=== PATIENT | female | born 2000 | race African-American/Black ===

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

== ENCOUNTER 2019-01-04 15:19 | Emergency (ER) | payer OTHER ==
[2019-01-04 16:43] LABS: ABS Lymphocytes 1.8 10^3/ul (1.0-4.8); ABS Monocytes 0.6 10^3/ul (0-0.8); ABS Neutrophils 3.3 10^3/ul (1.5-7.7); Eosinophil % 0.9 %; Hematocrit 36 % (35-47); Hemoglobin 12.2 g/dL (12.0-16.0); Lymphocyte % 31.7 %; Mean Corpuscular HGB Conc 34 g/dL (31-36); Mean Corpuscular Hemoglobin 26 pg (27-31); Mean Corpuscular Volume 78 fL (80-97); Mean Platelet Volume 8.4 fL (7.4-10.4); Nucleated Red Blood Cells % 0.1; Platelet Count 289 10^3/uL (150-450); Red Blood Count 4.67 10^6 /uL (3.70-4.87); Red Cell Distribution Width 14 % (10-15); White Blood Count 5.8 10^3/uL (3.5-10.8)
[2019-01-04 16:59] LABS: ALT 37 U/L (7-52); AST 53 U/L (13-39); Albumin/Globulin Ratio 1.2 (1-3); Alkaline Phosphatase 57 U/L (34-104); Anion Gap 5 mmol/L (2-11); BUN/Creatinine Ratio 19.5 (8-20); Blood Urea Nitrogen 15 mg/dL (6-24); C Reactive Protein 18.16 mg/L (<8.01); CO2 Carbon Dioxide 26 mmol/L (22-32); Calcium 9.2 mg/dL (8.6-10.3); Chloride 106 mmol/L (101-111); EGFR African American 116.8 (>60); EGFR Non-African American 96.6 (>60); Globulin 3.4 g/dL (2-4); Glucose 85 mg/dL (70-100); Potassium 4.2 mmol/L (3.5-5.0); Sodium 137 mmol/L (135-145); Total Protein 7.4 g/dL (6.4-8.9)
[2019-01-04 17:00] LABS: HCG Pregnancy < 0.60 mIU/mL
--- NOTE | 2019-01-04 17:19 | ED ---
Lower Extremity - HPI Summary HPI Summary: 18 year old female reports to the ED with complaints of swelling in her lower left leg that started several days ago. She describes the pain as a soreness that is worse in the morning and better in the afternoon. The pain is a 4/10 in severity. Patient denies fever, chills, cough, shortness of breath, and recent traveling. She occasionally drinks alcohol and does not do recreational drugs. She is on control. - History of Current Complaint Chief Complaint: EDExtremityLower Stated Complaint: LEFT LOWER EXTREMITY Time Seen by Provider: 01/04/19 16:00 Hx Obtained From: Patient Hx Last Menstrual Period: 12/17/17 Onset of Pain: Days Onset/Duration: Days Severity Initially: Moderate Severity Currently: Moderate Pain Intensity: 4 Pain Scale Used: 0-10 Numeric Timing: Intermittent - worse in the morning, better in the afternoon, Lasting Hours Location: Is Discrete @ - Lower LLE. Associated Signs And Symptoms: Positive: Swelling. Negative: Fever, Other - chills, shortness of breath, cough Able to Bear Weight: Yes - Allergies/Home Medications Allergies/Adverse Reactions: Allergies Allergy/AdvReac Type Severity Reaction Status Date / Time clindamycin Allergy Hives Verified 01/04/19 15:30 Home Medications: Home Medications NK [No Home Medications Reported] 01/04/19 [History Confirmed 01/04/19] PMH/Surg Hx/FS Hx/Imm Hx Cardiovascular History: Denies: Hx Deep Vein Thrombosis - Immunization History Immunizations Up to Date: Yes Infectious Disease History: No Infectious Disease History: Denies: Traveled Outside the [place] in Last 30 Days - Family History Known Family History: Positive: Diabetes - Social History Alcohol Use: Weekly Substance Use Type: Reports: None Smoking Status (MU): Never Smoked Tobacco Review of Systems Negative: Fever, Chills Negative: Shortness Of Breath, Cough Positive: Edema All Other Systems Reviewed And Are Negative: Yes Physical Exam - Summary Physical Exam Summary: VITAL SIGNS: Reviewed. GENERAL: Patient is a well-developed and nourished female who is lying comfortable in the stretcher. Patient is not in any acute respiratory distress. HEAD AND FACE: No signs of trauma. No ecchymosis, hematomas or skull depressions. No sinus tenderness. EYES: PERRLA, EOMI x 2, No injected conjunctiva, no nystagmus. EARS: Hearing grossly intact. Ear canals and tympanic membranes are within normal limits. MOUTH: Oropharynx within normal limits. NECK: Supple, trachea is midline, no adenopathy, no JVD, no carotid bruit, no c- spine tenderness, neck with full ROM. CHEST: Symmetric, no tenderness at palpation. LUNGS: Clear to auscultation bilaterally. No wheezing or crackles. CVS: Regular rate and rhythm, S1 and S2 present, no murmurs or gallops appreciated. ABDOMEN: Soft, non-tender. No signs of distention. No rebound, no guarding, and no masses palpated. Bowel sounds are normal. EXTREMITIES: FROM in all major joints, no cyanosis or clubbing. +2 edema in LLE. NEURO: Alert and oriented x 3. No acute neurological deficits. Speech is normal and follows commands. SKIN: Dry and warm. Triage Information Reviewed: Yes Vital Signs On Initial Exam: Initial Vitals Temp Pulse Resp BP Pulse Ox 98.4 F 76 16 140/71 99 01/04/19 15:28 01/04/19 15:28 01/04/19 15:28 01/04/19 15:28 01/04/19 15:28 Vital Signs Reviewed: Yes Procedures - Sedation Patient Received Moderate/Deep Sedation with Procedure: No Diagnostics - Vital Signs Vital Signs Temp Pulse Resp BP Pulse Ox 01/04/19 15:28 98.4 F 76 16 140/71 99 - Laboratory Lab Results: Lab Results 01/04/19 01/04/19 Range/Units 16:24 16:24 WBC 5.8 (3.5-10.8) 10^3/uL RBC 4.67 (3.70-4.87) 10^6 /uL Hgb 12.2 (12.0-16.0) g/dL Hct 36 (35-47) % MCV 78 L (80-97) fL MCH 26 L (27-31) pg MCHC 34 (31-36) g/dL RDW 14 (10-15) % Plt Count 289 (150-450) 10^3/uL MPV 8.4 (7.4-10.4) fL Neut % (Auto) 57.4 % Lymph % (Auto) 31.7 % [place] % (Auto) 9.6 % Eos % (Auto) 0.9 % Baso % (Auto) 0.4 % Absolute Neuts (auto) 3.3 (1.5-7.7) 10^3/ul Absolute Lymphs (auto) 1.8 (1.0-4.8) 10^3/ul Absolute Monos (auto) 0.6 (0-0.8) 10^3/ul Absolute Eos (auto) 0.0 (0-0.6) 10^3/ul Absolute Basos (auto) 0.0 (0-0.2) 10^3/ul Absolute Nucleated RBC 0.0 10^3/ul Nucleated RBC % 0.1 Sodium 137 (135-145) mmol/L Potassium 4.2 (3.5-5.0) mmol/L Chloride 106 (101-111) mmol/L Carbon Dioxide 26 (22-32) mmol/L Anion Gap 5 (2-11) mmol/L BUN 15 (6-24) mg/dL Creatinine 0.77 (0.51-0.95) mg/dL Est GFR ( Amer) 116.8 (>60) Est GFR (Non-Af Amer) 96.6 (>60) BUN/Creatinine Ratio 19.5 (8-20) Glucose 85 (70-100) mg/dL Calcium 9.2 (8.6-10.3) mg/dL Total Bilirubin 0.30 (0.2-1.0) mg/dL AST 53 H (13-39) U/L ALT 37 (7-52) U/L Alkaline Phosphatase 57 (34-104) U/L C-Reactive Protein 18.16 H (<8.01) mg/L Total Protein 7.4 (6.4-8.9) g/dL Albumin 4.0 (3.2-5.2) g/dL Globulin 3.4 (2-4) g/dL Albumin/Globulin Ratio 1.2 (1-3) Beta HCG, Quant < 0.60 mIU/mL Result Diagrams: 01/04/19 16:24 01/04/19 16:24 Lab Statement: Any lab studies that have been ordered have been reviewed, and results considered in the medical decision making process. - Ultrasound Venous Doppler Study LLE Ultrasound Interpretation Completed By: Radiologist Summary of Ultrasound Findings: NO LEFT LOWER EXTREMITY DEEP VEIN THROMBOSIS. An ED physician has reviewed this report. Lower Extremity Course/Dx - Course Assessment/Plan: Patient is a 18-year-old female complaining of left lower extremity swelling. Blood tests without any significant abnormality. Left lower extremity ultrasound negative for DVT. I discussed all the findings and test results with the patient. Patient was instructed to return to the emergency room immediately if any of the symptoms return worsens. Plan of care was discussed with the patient and understands and agrees. All questions were answered at patient satisfaction. There were no further complaints or concerns. Lung exam before discharge: CTA B/L. Good air exchange. No wheezing or crackles heard. CVS: S1 and S2 present. No murmurs appreciated. Patient is alert and oriented x 3. Patient is hemodynamically stable. Patient will be discharged home with follow up PCP in the next 2-3 days - Diagnoses Provider Diagnoses: Lower extremity edema Discharge ED - Sign-Out/Discharge Documenting (check all that apply): Patient Departure - discharge - Discharge Plan Condition: Stable Disposition: HOME Patient Education Materials: Swollen Ankle Joint (ED) Referrals: [facility] - Antoni [Primary Care Provider] - Additional Instructions: Follow up with your primary care provider in 2-3 days. Return to the Emergency Department if you experience new or worsened symptoms. - Attestation Statements Document Initiated by Scribe: Yes Documenting Scribe: Ashok Jaeger Provider For Whom Rigoberto is Documenting (Include Credential): Dr. Zheng Camacho MD. Scribe Attestation: Ashok Ledesma, scribed for Dr. Zheng Camacho MD. on 01/04/19 at 1858. Status of Scribe Document: Ready
[2019-01-04 17:59] VITALS: BP 119/67
== END 2019-01-04 17:58 | disposition home or self-care (01) ==
LOC: ED 15:19
DX: R60.0 Localized edema (principal); Z88.1 Allergy status to other antibiotic agents
CPT/HCPCS: 36415; 80053; 84702; 85025; 86140; 99282

== ENCOUNTER 2019-03-03 20:21 | Emergency (ER) | payer OTHER ==
--- NOTE | 2019-03-03 21:00 | ED ---
Lower Extremity - HPI Summary HPI Summary: Patient with history of chronic bilateral lower extremity swelling 1 month complains of new onset right anterior ankle and right anterior flynn pain starting at midnight last night. Denies trauma, fever, cough, sore throat, CP, SOB, N/V/D, abdominal pain, change in urine, change in BM. Patient states she has been evaluated for bilateral lower extremities swelling with pelvic ultrasounds and MRIs with no formal diagnosis. - History of Current Complaint Chief Complaint: EDExtremityLower Stated Complaint: RIGHT LEG PAIN PER PT Time Seen by Provider: 03/03/19 20:38 Hx Obtained From: Patient Hx Last Menstrual Period: 12/17/17 Mechanism Of Injury: Unknown Onset of Pain: Hours Onset/Duration: Hours Severity Initially: Moderate Severity Currently: Moderate Pain Intensity: 4 Pain Scale Used: 0-10 Numeric Timing: Constant Location: Is Discrete @ Character Of Pain: Throbbing Associated Signs And Symptoms: Positive: Swelling Aggravating Factor(s): Movement, Weight Bearing Alleviating Factor(s): Rest, Elevation Able to Bear Weight: Yes - Allergies/Home Medications Allergies/Adverse Reactions: Allergies Allergy/AdvReac Type Severity Reaction Status Date / Time clindamycin Allergy Hives Verified 03/03/19 20:27 Home Medications: Home Medications Ethinyl Estradiol/Drospirenone [Gianvi 3 mg-0.02 mg Tablet] 1 tab PO DAILY 03/03 [History Confirmed 03/03/19] PMH/Surg Hx/FS Hx/Imm Hx Endocrine/Hematology History: Denies: Hx Anticoagulant Therapy Cardiovascular History: Denies: Hx Deep Vein Thrombosis Respiratory History: Denies: Hx Chronic Obstructive Pulmonary Disease (COPD) History: Denies: Hx Dialysis Sensory History: Denies: Hx Eye Prosthesis Opthamlomology History: Denies: Hx Legally Blind EENT History: Denies: Hx Deafness Infectious Disease History: No Infectious Disease History: Denies: Traveled Outside the [place] in Last 30 Days - Family History Known Family History: Positive: Diabetes - Social History Alcohol Use: Weekly Substance Use Type: Reports: None Smoking Status (MU): Never Smoked Tobacco Review of Systems Constitutional: Negative Eyes: Negative ENT: Negative Cardiovascular: Negative Respiratory: Negative Gastrointestinal: Negative Genitourinary: Negative Musculoskeletal: Other Skin: Negative Neurological: Negative Psychological: Normal All Other Systems Reviewed And Are Negative: Yes Physical Exam - Summary Physical Exam Summary: Bilateral pitting edema to lower extremities. Right calf soft nontender. Full range of motion of ankle and knee. Moderate tenderness to palpation of anterior right ankle and right flynn. No evidence of wound. Mild erythema and positive extra warmth to right lower extremity versus left lower extremity. PMS intact distally. Triage Information Reviewed: Yes Vital Signs On Initial Exam: Initial Vitals Temp Pulse Resp BP Pulse Ox 96.6 F 85 16 152/70 100 03/03/19 20:25 03/03/19 20:25 03/03/19 20:25 03/03/19 20:25 03/03/19 20:25 Vital Signs Reviewed: Yes Appearance: Positive: Well-Appearing Skin: Positive: Warm Head/Face: Positive: Normal Head/Face Inspection Eyes: Positive: Normal Neck: Positive: Supple Respiratory/Lung Sounds: Positive: Clear to Auscultation Cardiovascular: Positive: Normal Abdomen Description: Positive: Nontender Musculoskeletal: Positive: Normal Neurological: Positive: Normal Psychiatric: Positive: Normal AVPU Assessment: Alert - Kayleigh Coma Scale Best Eye Response: 4 - Spontaneous Best Motor Response: 6 - Obeys Commands Best Verbal Response: 5 - Oriented Coma Scale Total: 15 Procedures - Sedation Patient Received Moderate/Deep Sedation with Procedure: No Diagnostics - Vital Signs Vital Signs Temp Pulse Resp BP Pulse Ox 03/03/19 20:25 96.6 F 85 16 152/70 100 - Laboratory Lab Statement: Any lab studies that have been ordered have been reviewed, and results considered in the medical decision making process. Lower Extremity Course/Dx - Course Course Of Treatment: Patient with history of chronic bilateral lower extremity swelling 1 month complains of new onset right anterior ankle and right anterior flynn pain starting at midnight last night. Denies trauma, fever, cough , sore throat, CP, SOB, N/V/D, abdominal pain, change in urine, change in BM. Patient states she has been evaluated for bilateral lower extremities swelling with pelvic ultrasounds and MRIs with no formal diagnosis. Vital signs within normal limits. Ultrasound lower extremity negative for DVT. Positive warmth and mild erythema. Trial of Keflex. - Diagnoses Provider Diagnoses: Cellulitis Discharge ED - Sign-Out/Discharge Documenting (check all that apply): Patient Departure - Discharge Plan Condition: Stable Disposition: HOME Prescriptions: Cephalexin CAP* [Keflex CAP*] 500 mg PO QID 7 Days #21 cap Patient Education Materials: Cellulitis (ED) Referrals: [facility] - Antoni WALKER [Primary Care Provider] - Additional Instructions: Take antibiotics as directed. Follow-up with primary care. Return to the ED for any new or worsening symptoms. - Billing Disposition and Condition Condition: STABLE Disposition: Home
[2019-03-03] MEDS ORDERED: Cephalexin CAP* 500 MG PO ONE (22:05)
[2019-03-03 22:41] VITALS: BP 133/82
== END 2019-03-03 22:39 | disposition home or self-care (01) ==
LOC: ED 20:21
DX: L03.90 Cellulitis, unspecified (principal); R60.0 Localized edema; Z79.899 Other long term (current) drug therapy
CPT/HCPCS: 99282; A9270-GY